=== PATIENT | male | born 1965 | race Caucasian/White ===

== ENCOUNTER 2021-12-02 09:33 | Outpatient (CLI) | payer BC | END 2021-12-02 09:34 | disposition home or self-care (01) | LOC: CSHMRI 09:33 | PROVIDERS: ATTEND Urology | DX: R97.20 Elevated prostate specific antigen [PSA] (principal) | CPT/HCPCS: 72197 ==

== ENCOUNTER 2023-06-08 12:25 | Outpatient (CLI) | payer BC ==
[~2023-06-08 12:25] MED LIST: Magnevist 469MG/ML 20 ML VIAL ONE
== END 2023-06-08 12:26 | disposition home or self-care (01) ==
LOC: CSHMRI 12:25
PROVIDERS: ATTEND Urology
DX: C61 Malignant neoplasm of prostate (principal)
CPT/HCPCS: 72197; A9579